=== PATIENT | female | born 1960 | race Caucasian/White ===

== ENCOUNTER → 2018-09-30 | Outpatient (REF) | payer BC ==
[2018-10-04 14:09] LABS: HPV HYBRID CAPTURE II Negative (Negative)
== END ==
LOC: M LAB LCGH 12:04
PROVIDERS: ATTEND Family Medicine
DX: Z12.4 Encounter for screening for malignant neoplasm of cervix (principal); N76.0 Acute vaginitis
CPT/HCPCS: 87624; G0123

== ENCOUNTER 2018-12-05 07:42 | Day surgery (SDC) | payer BC ==
[~2018-12-05] VITALS: Ht 175.3 cm; Wt 77.6 kg
[~2018-12-05 07:42] MED LIST: LIDOCAINE 2% INJ 100 MG/5 ML SDV (FOR ANES.) As Ordered ONE; PROPOFOL 200 MG/20 ML VIAL As Ordered ONE
--- NOTE | 2018-12-05 09:14 | ROOR ---
Patient Name: Benita Brooks Procedure Date: 12/05/2018 8:37 AM Date of : 1960 Age: 58 Room: [facility] Gender: Female Note Status: Finalized Procedure: Colonoscopy Indications: High risk colon cancer surveillance: Personal history of colonic polyps Providers: Eduardo Monique MD Referring MD: Daxa ALFARO MD Requesting Provider: Medicines: Monitored Anesthesia Care Complications: No immediate complications. Procedure: Pre-Anesthesia Assessment: - Prior to the procedure, a History and Physical was performed, and patient medications and allergies were reviewed. The patient is competent. The risks and benefits of the procedure and the sedation options and risks were discussed with the patient. All questions were answered and informed consent was obtained. Patient identification and proposed procedure were verified by the physician, the nurse and the anesthesiologist in the procedure room. Mental Status Examination: alert and oriented. Airway Examination: normal oropharyngeal airway and neck mobility. Respiratory Examination: clear to auscultation. CV Examination: normal. Prophylactic Antibiotics: The patient does not require prophylactic antibiotics. Prior Anticoagulants: The patient has taken no previous anticoagulant or antiplatelet agents. ASA Grade Assessment: II - A patient with mild systemic disease. After reviewing the risks and benefits, the patient was deemed in satisfactory condition to undergo the procedure. The anesthesia plan was to use monitored anesthesia care (MAC). Immediately prior to administration of medications, the patient was re-assessed for adequacy to receive sedatives. The heart rate, respiratory rate, oxygen saturations, blood pressure, adequacy of pulmonary ventilation, and response to care were monitored throughout the procedure. The physical status of the patient was re-assessed after the procedure. The Colonoscope was introduced through the anus and advanced to the terminal ileum, with identification of the appendiceal orifice and IC valve. The colonoscopy was performed without difficulty. The patient tolerated the procedure well. The quality of the bowel preparation was good. The terminal ileum, ileocecal valve, appendiceal orifice, and rectum were photographed. Scope insertion time was 3 minutes. Scope withdrawal time was 9 minutes. The total duration of the procedure was 12 minutes. Findings: The perianal and digital rectal examinations were normal. The terminal ileum appeared normal. Multiple small-mouthed diverticula were found from sigmoid to ascending colon. There was no evidence of diverticular bleeding. Non-bleeding external and internal hemorrhoids were found during retroflexion. The hemorrhoids were medium-sized. No other significant abnormalities were identified in a careful examination of the remainder of the colon. Impression: - The examined portion of the ileum was normal. - Moderate diverticulosis from sigmoid to ascending colon. There was no evidence of diverticular bleeding. - Non-bleeding external and internal hemorrhoids. - No specimens collected. Recommendation: - Patient has a contact number available for emergencies. The signs and symptoms of potential delayed complications were discussed with the patient. Return to normal activities tomorrow. Written discharge instructions were provided to the patient. - High fiber diet. - Continue present medications. - Repeat colonoscopy in 5-10 years for screening purposes and due to personal history of colon polyps in past Colonoscopy. - Return to GI clinic in 5 years. - Return to primary care physician. Eduardo Monique MD Eduardo Monique MD 12/05/2018 9:14:51 AM Electronically signed by Eduardo Monique MD Number of Addenda: 0 Note Initiated On: 12/05/2018 8:37 AM Estimated Blood Loss: Estimated blood loss was minimal.
[2018-12-05 09:32] VITALS: BP 133/82
== END 2018-12-05 09:39 | disposition home or self-care (01) ==
LOC: M OPP 07:42
PROVIDERS: ATTEND Internal Medicine Gastroenterology
DX: Z86.010 Personal history of colon polyps (principal); Z09 Encounter for follow-up examination after completed treatment for conditions other than malignant neoplasm; K64.8 Other hemorrhoids; K57.30 Diverticulosis of large intestine without perforation or abscess without bleeding; Z91.89 Other specified personal risk factors, not elsewhere classified

== ENCOUNTER → 2019-02-28 | Outpatient (CLI) | payer BC ==
--- NOTE | 2019-02-28 13:16 | REPVR ---
PROCEDURE INFORMATION: Exam: MR Cervical Spine Without Contrast Exam date and time: 02/28/2019 8:59 AM Age: 58 years old Clinical indication: Numbness; Additional info: Other cervical disc degeneration, unsp cervical reg TECHNIQUE: Imaging protocol: Multiplanar magnetic resonance images of the cervical spine without intravenous contrast. COMPARISON: No relevant prior studies available. FINDINGS: There is straightening of the normal cervical lordosis. No spondylolisthesis or compression fractures. Normal marrow signal. Disc heights are predominantly maintained. Cervical spinal cord demonstrates normal signal intensity. At C2-C3, there is no significant spinal canal or neural foraminal narrowing. At C3-C4, there is no significant spinal canal narrowing. Left facet arthrosis causes moderate left neural foraminal narrowing. At C4-C5, there is no significant spinal canal narrowing. Uncovertebral hypertrophy causes mild left neural foraminal narrowing. At C5-C6, a small central disc protrusion causes mild spinal canal narrowing, slightly flattening the ventral thecal sac. Mild uncovertebral hypertrophy with mild bilateral neural foraminal narrowing. At C6-C7, circumferential disc bulge with posterior disc osteophyte complex is present. Mild spinal canal narrowing. Moderate left and mild right neural foraminal narrowing. At C7-T1, there is no significant spinal canal or neural foraminal narrowing. IMPRESSION: No severe cervical spinal canal stenosis or neural foraminal narrowing. Multilevel mild to moderate degenerative findings as discussed. Electronically signed by: Fox Mcmillan On 02/28/2019 13:16:23 PM
== END ==
LOC: M RAD 08:50
PROVIDERS: ATTEND Physician Assistant
DX: M50.221 Other cervical disc displacement at C4-C5 level (principal); M50.222 Other cervical disc displacement at C5-C6 level; M48.02 Spinal stenosis, cervical region; M25.78 Osteophyte, vertebrae

== ENCOUNTER → 2019-04-02 | Outpatient (REF) | payer BC ==
[2019-04-02 16:40] LABS: ALBUMIN 4.1 GM/DL (3.2-5.2); ALT/SGPT 26 U/L (12-78); BILIRUBIN,TOTAL 0.7 MG/DL (0.2-1.0); BLOOD UREA NITROGEN 14 MG/DL (7-18); CALCIUM LEVEL 8.8 MG/DL (8.5-10.1); CARBON DIOXIDE LEVEL 29 MEQ/L (21-32); CHLORIDE LEVEL 106 MEQ/L (98-107); GLOMERULAR FILTRATION RATE > 60.0 (>51); GLUCOSE, FASTING 94 MG/DL (70-100); POTASSIUM SERUM 3.9 MEQ/L (3.5-5.1); SODIUM LEVEL 141 MEQ/L (136-145); TOTAL PROTEIN 7.5 GM/DL (6.4-8.2)
== END ==
LOC: M LABDRAW1 15:28
PROVIDERS: ATTEND Physician Assistant
DX: M50.31 Other cervical disc degeneration, high cervical region (principal)

== ENCOUNTER → 2022-06-28 | Outpatient (CLI) | payer BC | LOC: M WHC 10:20 | PROVIDERS: ATTEND Otolaryngology | DX: E04.1 Nontoxic single thyroid nodule (principal) ==

== ENCOUNTER → 2022-08-13 | Outpatient (CLI) | payer BC ==
[~2022-08-13] MED LIST changes: +LIDOCAINE 1% MDV 20ML VIAL As Ordered ONE; -LIDOCAINE 2% INJ 100 MG/5 ML SDV (FOR ANES.) As Ordered ONE; -PROPOFOL 200 MG/20 ML VIAL As Ordered ONE
[2022-08-13 14:00] VITALS: BP 164/80
== END ==
LOC: M IRPRO 12:13
PROVIDERS: ATTEND Otolaryngology
DX: E04.1 Nontoxic single thyroid nodule (principal)

== ENCOUNTER 2024-04-13 06:56 | Day surgery (SDC) | payer BC ==
[~2024-04-13] VITALS: Ht 175.3 cm; Wt 78.5 kg
[~2024-04-13 06:56] MED LIST changes: +CHOL100013 PO; +IPRA6SP; -LIDOCAINE 1% MDV 20ML VIAL As Ordered ONE; +MULT1TAB16 PO; +OMEG10002 PO; +OSTETAB2 PO
[2024-04-13] MEDS ORDERED: LIDOCAINE 2% 100MG/5ML SDV (FOR ANES.) As Ordered ONE (07:44)
[2024-04-13] MEDS ORDERED: propofoL 200 MG/20 ML VIAL As Ordered ONE (07:44)
[2024-04-13 08:53] VITALS: BP 126/71; O2SAT 94
== END 2024-04-13 08:57 | disposition home or self-care (01) ==
LOC: M OPP 06:56
PROVIDERS: ATTEND Internal Medicine Gastroenterology
DX: K64.8 Other hemorrhoids (principal); Z86.0100 Personal history of colon polyps, unspecified; Z79.899 Other long term (current) drug therapy